=== PATIENT | female | born 1985 | race Hispanic/Latino ===

== ENCOUNTER 2017-09-08 17:33 | Day surgery (SDC) | payer BC ==
[2017-09-08 18:07] VITALS: BP 108/72; TEMP 98.3
[2017-09-08 18:08] VITALS: BMI 32.3
[2017-09-08 19:49] LABS: Bilirubin Negative (Negative); Blood, Urine Trace (Negative); Clarity CLEAR (Clear); Glucose, Urine (Dipstick) Negative (Negative); Leukocyte Negative (Negative); Nitrite Negative (Negative); Protein, Urine (Dipstick) Negative (Neg-Trace); Specific Gravity, Urine 1.014 (1.002-1.036); Urobilinogen 0.2 mg/dL (0.2-1.0)
[2017-09-08 19:51] LABS: Bacteria/HPF None Seen HPF (None Seen); Hyaline Casts/LPF 4-6 HYALINE CAST LPF (0-3 Hyaline); Pathc Cast-AUWi Flag 1.45 (0-2.49); Squamous Epithelial 0-3 HPF (0-3); WBC/HPF 0-3 HPF (0-3)
--- NOTE | 2017-09-08 21:56 | PRG ---
DATE OF SERVICE: 09/08/2017 TIME OF SERVICE: 2015 hours. OB ED NOTE PRESENTING COMPLAINT: Midline back pain for approximately 5 days. HISTORY OF PRESENT ILLNESS: Ms. Burton is a 32-year-old 4, para 3 at 32 weeks' gestation wh o sees Dr. David Guerrero. She reports that she has had [id number] lower back pain in midline wi thout dysuria, fever, or frequency for the past 5 days. She denies contractions. She reports an act yareli fetus. OBSTETRIC/GYNECOLOGIC HISTORY: Antepartum record not available on the unit. The patient reports 3 s pontaneous vaginal deliveries at term. She denies history of complication of her pregnancies. She d enies history of UTIs in pregnancies and she denies a history of UTI during this . PAST MEDICAL HISTORY: None. PAST SURGICAL HISTORY: None. ALLERGIES: Denies. MEDICATIONS: vitamins. SOCIAL HISTORY: Denies tobacco, alcohol, or drug use. FAMILY HISTORY: Noncontributory. REVIEW OF SYSTEMS: Noncontributory. PHYSICAL EXAMINATION: GENERAL: female resting comfortably. VITAL SIGNS: Temperature 98.3, pulse 103, respirations 16, blood pressure 108/72. HEENT: Within normal limits. HEART: Regular rate and rhythm. LUNGS: Clear to auscultation bilaterally. ABDOMEN: Soft and nontender without rebound or guarding. Fundal height 32 cm. FHT's in 140s, categ ory 1 heart rate tracing. GENITOURINARY: Vaginal exam was deferred. No CVA tenderness noted. EXTREMITIES: Without clubbing, cyanosis, or edema. LABORATORY DATA: cath UA revealed trace blood, no leukocyte esterase, and no bacteria. IMPRESSION: Discomforts of , lower back pain, likely secondary to transition in the third t rimester with lordosis associated with multiple previous pregnancies. PLAN: Reassurance, heating pad p.r.n. The patient is to keep scheduled followup with Dr. Guerrero.
== END 2017-09-08 20:30 | disposition home or self-care (01) ==
LOC: L&D/OP 17:33
PROVIDERS: ATTEND Obstetrics & Gynecology
DX: O99.89 Other specified diseases and conditions complicating pregnancy, childbirth and the puerperium (principal); M54.5 Low back pain; Z3A.32 32 weeks gestation of pregnancy
CPT/HCPCS: 51701; 81001; 99282; A4353

== ENCOUNTER 2017-10-23 07:42 | Day surgery (SDC) | payer BC ==
[2017-10-23 08:16] VITALS: BMI 34.0
[2017-10-23 08:21] VITALS: BP 112/81; TEMP 99
== END 2017-10-23 09:30 | disposition home or self-care (01) ==
LOC: L&D/OP 07:42
PROVIDERS: ATTEND Obstetrics & Gynecology
DX: O47.1 False labor at or after 37 completed weeks of gestation (principal); Z3A.39 39 weeks gestation of pregnancy
CPT/HCPCS: 99283

== ENCOUNTER 2017-10-24 05:30 | Inpatient (IN) | payer BC ==
[~2017-10-24 05:30] MED LIST: Acetaminophen 500 MG TAB PO PRN; Butorphanol Tartrate 1 MG/ML VIAL SLOW IVP PRN; HYDROcodone/Acetaminophen 5/325 mg Tablet PO PRN; Ibuprofen 800 MG TAB PO PRN; Lidocaine 1% (PF) 30 ML VIAL SC PRN; NS w/ Oxytocin 10 units 500 ML IV SCH; Ondansetron HCl/PF 4 MG/2 ML Vial IVP PRN; Promethazine HCl 25 MG/ML VIAL IM PRN
[2017-10-24] MEDS: Lactated Ringer's 1,000 ML IV SCH ×2 (09:55→17:03)
[2017-10-24 10:09] VITALS: BMI 34.0
[2017-10-24] MEDS: NS w/ Oxytocin 10 units 500 ML IV SCH (10:32)
[2017-10-24 10:39] LABS: Hemoglobin 10.6 g/dL (12.0-16.0); Mean Corpuscular HGB CONC 34.1 g/dL (32.0-36.0); Mean Corpuscular Hemoglobin 29.1 pg (27.0-31.0); Mean Corpuscular Volume 85.4 fL (78.0-98.0); Mean Platelet Volume 7.8 fL (7.4-10.4); Platelet Count 224 thou/uL (130-400); RBC Distribution Width 11.9 % (11.5-14.5); Red Blood Cell (RBC) Count 3.64 mill/uL (4.20-5.40); White Blood Cell (WBC) Count 4.7 thou/uL (4.8-10.8)
[2017-10-24 11:15] LABS: Hep B Surf Ag Non-Reactive S/CO (NonReactive); Syphilis Antibody Nonreactive (Nonreactive); Syphilis Antibody Index 0.02 S/CO (<1.00 Non-Reactive)
[2017-10-24] MEDS ORDERED: Bupivacaine 0.5% 20 ML, fentaNYL Citrate/PF 400 MCG in Sodium Chloride 0.9% 72 ML EPIDURAL SCH (18:45)
[2017-10-24] MEDS ORDERED: DISCONTINUE ALL PREVIOUS NARCOTICS FS SCH (18:45)
[2017-10-24] MEDS ORDERED: ePHEDrine/0.9% NaCl/PF SYRINGE 50 mg/10 ml SLOW IVP PRN (20:11)
[2017-10-24] MEDS ORDERED: diphenhydrAMINE 50 MG/ML VIAL IVP PRN (20:11)
[2017-10-24] MEDS ORDERED: Ondansetron HCl/PF 4 MG/2 ML Vial IVP PRN (20:11)
[2017-10-24] MEDS ORDERED: Lactated Ringer's 500 ML IV PRN (20:11)
[2017-10-24] MEDS ORDERED: Naloxone HCl 0.4 mg/ml Vial IVP PRN ×2 (20:11)
[2017-10-24] MEDS ORDERED: Acetaminophen 325 MG TAB PO PRN (20:11)
[2017-10-24] MEDS ORDERED: Eucerin (Mineral Oil/Petrolatum,White) 30 gm Jar TOP PRN (20:11)
[2017-10-24] MEDS ORDERED: Promethazine HCl 25 MG/ML VIAL IM PRN (20:11)
[2017-10-24] MEDS ORDERED: fentaNYL Citrate/PF 400 MCG, Bupivacaine 0.5% 20 ML in Sodium Chloride 0.9% 72 ML EPIDURAL SCH (20:15)
[2017-10-24] MEDS ORDERED: Communication Order-Pharmacy FS SCH (20:15)
[2017-10-24] MEDS: NS / Oxytocin 40 units/1000ml 1,000 ML IV PRN (23:19)
[2017-10-25] MEDS ORDERED: Bupivacaine/Epinephrine 0.25% 30 ML VIAL ONE (00:30)
[2017-10-25] MEDS: NS / Oxytocin 40 units/1000ml 1,000 ML IV PRN (00:30)
[2017-10-25] MEDS: NS w/ Oxytocin 10 units 500 ML IV SCH (01:03)
[2017-10-25] MEDS ORDERED: Lanolin Ointment 7 GM TUBE TOP PRN (01:48)
[2017-10-25] MEDS ORDERED: NS / Oxytocin 40 units/1000ml 1,000 ML IV SCH (01:48)
[2017-10-25] MEDS ORDERED: Zolpidem Tartrate 5 MG TAB PO PRN (01:48)
[2017-10-25] MEDS ORDERED: Bisacodyl 10 MG SUPP PR PRN (01:48)
[2017-10-25] MEDS ORDERED: Benzocaine/Menthol 20-0.5% 60 ML CAN TOP PRN (01:48)
[2017-10-25] MEDS ORDERED: Preparation H Ointment 28 GM TUBE PR PRN (01:48)
[2017-10-25] MEDS ORDERED: HYDROcodone/Acetaminophen 5/325 mg Tablet PO PRN ×2 (01:48)
[2017-10-25] MEDS ORDERED: Milk Of Magnesia 30 ML UDCUP PO PRN (01:48)
[2017-10-25] MEDS ORDERED: diphenhydrAMINE 25 MG CAP PO PRN (01:48)
[2017-10-25] MEDS ORDERED: Ondansetron HCl/PF 4 MG/2 ML Vial IVP PRN (01:48)
[2017-10-25] MEDS ORDERED: Docusate Calcium (SURFAK) 240 MG CAP PO SCH (02:00)
[2017-10-25] MEDS ORDERED: Ferrous Sulfate 325 MG TAB PO SCH (02:00)
[2017-10-25] MEDS ORDERED: Adacel (T-DAP) 0.5 ML VIAL IM ONE (03:00)
[2017-10-25] MEDS ORDERED: Measles/Mumps/Rubella 10 MCG/0.5 ML VIAL SC ONE (03:00)
[2017-10-25] MEDS ORDERED: Varicella virus, LIVE 0.5 ML VIAL SC ONE (03:00)
[2017-10-25 05:40] LABS: Hemoglobin 10.2 g/dL (12.0-16.0); Mean Corpuscular HGB CONC 33.6 g/dL (32.0-36.0); Mean Corpuscular Volume 86.4 fL (78.0-98.0); Platelet Count 174 thou/uL (130-400); RBC Distribution Width 11.7 % (11.5-14.5); Red Blood Cell (RBC) Count 3.51 mill/uL (4.20-5.40); White Blood Cell (WBC) Count 11.3 thou/uL (4.8-10.8)
--- NOTE | 2017-10-25 08:32 | PRG ---
DATE OF SERVICE: 10/25/2017. SUBJECTIVE: The patient is day #1, status post a term spontaneous vaginal delivery after an elective induction. Today, the patient reports she is tolerating p.o., voiding on her own, having decreased lochia and good pain control. PHYSICAL EXAMINATION: VITAL SIGNS: Blood pressure this morning is 110/78, temperature 98.6, pulse of 80, respiratory rate 16, and satting 96%-100% on room air. GENERAL: She is in no acute distress. She is alert and oriented, cooperative and pleasant to intera ct with. ABDOMEN: Fundus is firm. EXTREMITIES: Nontender with minimal edema and symmetrical. LABORATORY DATA: Postdelivery hemoglobin is 10.2, hematocrit 30.4, platelets of 174,000. ASSESSMENT AND PLAN: The patient is day #1, status post a term spontaneous vaginal delive ry. Anticipate discharge tomorrow as the patient delivered late last night.
[2017-10-25] MEDS: Ferrous Sulfate 325 MG TAB PO SCH (18:58)
[2017-10-25] MEDS: Docusate Calcium (SURFAK) 240 MG CAP PO SCH ×2 (18:58→21:46)
[2017-10-25] MEDS: Ibuprofen 800 MG TAB PO SCH ×2 (18:58→20:08)
[2017-10-26] MEDS: Ibuprofen 800 MG TAB PO SCH (05:29)
[2017-10-26 08:19] VITALS: BP 115/76; TEMP 97.7
[2017-10-26] MEDS: Ferrous Sulfate 325 MG TAB PO SCH (09:22)
[2017-10-26] MEDS: Docusate Calcium (SURFAK) 240 MG CAP PO SCH (09:23)
== END 2017-10-26 13:00 | disposition home or self-care (01) | DRG 775 ==
LOC: L&D 09:12 → 3SE 10-25 02:54
PROVIDERS: ADMIT Obstetrics & Gynecology; ATTEND Obstetrics & Gynecology
PROC: 10E0XZZ Delivery of Products of Conception, External Approach (ICD-10-PCS; principal; 2017-10-24)
PROC: 3E033VJ Introduction of Other Hormone into Peripheral Vein, Percutaneous Approach (ICD-10-PCS; 2017-10-24)
DX: O80 Encounter for full-term uncomplicated delivery (principal); Z37.0 Single live birth; Z3A.39 39 weeks gestation of pregnancy
CPT/HCPCS: 36415; 85027; 86780; 86850; 86900; 86901; 87340; J2001; J3010; J3490; J7050

== ENCOUNTER 2021-12-31 07:54 | Outpatient (CLI) | payer BC | END 2021-12-31 07:55 | disposition home or self-care (01) | LOC: TBSIIMAG 07:54 | PROVIDERS: ATTEND Family Medicine | DX: R42 Dizziness and giddiness (principal) | CPT/HCPCS: 70551 ==